=== PATIENT | male | born 1965 | race Two or more races ===

== ENCOUNTER 2017-11-20 18:25 | Emergency (ER) | payer MEDICAID ==
[~2017-11-20] VITALS: Ht 180.3 cm; Wt 92.5 kg
--- NOTE | 2017-11-20 19:10 | Emergency Room Report ---
History of Present Illness General Chief Complaint: Chest Pain Source: Patient, Medical Record Present Illness HPI Patient is a 52-year-old male who present after increased cough and chest discomfort. Patient did have a tightness to the center of his chest. This did not radiate. Patient denied any fever. He had recently started on antibiotics as well as Sudafed. Patient had been noted to have previous EKG which showed ST segment consistent with J-point elevation. Patient denied any radiation of pain. Pain was unchanged with exertion.Patient denied any leg swelling or pain Allergies: Coded Allergies: No Known Allergies (Unverified , 11/20/17) Patient History Reviewed Nursing Documentation: PMH: Agreed, PSxH: Agreed Nursing Documentation-PM Past Medical History: No History, Except For Review of Systems All Other Systems: negative except mentioned in HPI Physical Exam Vital Signs Date Time Temp Pulse Resp B/P (MAP) Pulse Ox O2 Delivery O2 Flow Rate FiO2 11/20/17 18:38 99.7 91 18 143/98 96 Room Air 99.7 Sp02 EP Interpretation: reviewed, normal General Appearance: normal inspection, well appearing, no apparent distress, alert, GCS 15, non-toxic Head: atraumatic ENT: normal ENT inspection, hearing grossly normal, normal voice Neck: normal inspection, full range of motion, supple, no bony tend Respiratory: normal inspection, lungs clear, normal breath sounds, no respiratory distress, no retraction, wheezing Cardiovascular #1: regular rate, rhythm, no edema Gastrointestinal: normal inspection, normal bowel sounds, non tender, soft, no guarding, no hernia Genitourinary: no CVA tenderness Musculoskeletal: normal inspection, back normal, normal range of motion Neurologic: normal inspection, alert, oriented x3, responsive, 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 Differential diagnosis included but was not limited to acute coronary syndrome, pulmonary embolism, pneumonia, aortic dissection, shingles, pneumothorax, aortic dissection, esophageal rupture, pericarditis. Because of complexity of patient's case laboratory testing and imaging studies were ordered. EKG interpreted by me shows sinus tachycardia with rate of [address] or T-wave changes.Laboratory studies are unremarkable. The patient is advised to follow up with primary care doctor in 1-2 days. Patient is advised to return if any worsening condition or if any changes in status that are concerning. This report is dictated with [employer] solo musician software which may occasionally lead to discrepancies related to use of this software. Labs Test 11/20/17 19:31 White Blood Count 5.6 K/UL (4.8-10.8) Red Blood Count 5.79 M/UL (4.70-6.10) Hemoglobin 18.2 G/DL (14.2-18.0) Hematocrit 51.4 % (42.0-52.0) Mean Corpuscular Volume 89 FL (80-99) Mean Corpuscular Hemoglobin 31.4 PG (27.0-31.0) Mean Corpuscular Hemoglobin Concent 35.4 G/DL (32.0-36.0) Red Cell Distribution Width 11.6 % (11.6-14.8) Platelet Count 248 K/UL (150-450) Mean Platelet Volume 6.1 FL (6.5-10.1) Neutrophils (%) (Auto) 61.2 % (45.0-75.0) Lymphocytes (%) (Auto) 28.9 % (20.0-45.0) Monocytes (%) (Auto) 8.3 % (1.0-10.0) Eosinophils (%) (Auto) 0.9 % (0.0-3.0) Basophils (%) (Auto) 0.7 % (0.0-2.0) Prothrombin Time 10.0 SEC (9.30-11.50) Prothromb Time International Ratio 1.0 (0.9-1.1) Activated Partial Thromboplast Time 28 SEC (23-33) Sodium Level 137 MMOL/L (136-145) Potassium Level 3.7 MMOL/L (3.5-5.1) Chloride Level 103 MMOL/L (98-107) Carbon Dioxide Level 27 MMOL/L (21-32) Anion Gap 7 mmol/L (5-15) Blood Urea Nitrogen 15 mg/dL (7-18) Creatinine 1.2 MG/DL (0.55-1.30) Estimat Glomerular Filtration Rate > 60 mL/min (>60) Glucose Level 96 MG/DL (74-106) Calcium Level 9.3 MG/DL (8.5-10.1) Total Bilirubin 0.6 MG/DL (0.2-1.0) Aspartate Amino Transf (AST/SGOT) 28 U/L (15-37) Alanine Aminotransferase (ALT/SGPT) 26 U/L (12-78) Alkaline Phosphatase 77 U/L (46-116) Total Creatine Kinase 160 U/L (26-308) Creatine Kinase MB 1.8 NG/ML (0.0-3.6) Creatine Kinase MB Relative Index 1.1 Troponin I 0.000 ng/mL (0.000-0.056) Pro-B-Type Natriuretic Peptide 81 pg/mL (0-125) Total Protein 8.7 G/DL (6.4-8.2) Albumin 4.3 G/DL (3.4-5.0) Globulin 4.4 g/dL Albumin/Globulin Ratio 1.0 (1.0-2.7) Last Vital Signs Date Time Temp Pulse Resp B/P (MAP) Pulse Ox O2 Delivery O2 Flow Rate FiO2 11/20/17 18:38 99.7 91 18 143/98 96 Room Air 99.7 Status: improved Disposition: HOME, SELF-CARE Condition: Stable Scripts Albuterol Sulfate* (ALBUTEROL SULFATE MDI*) 8.5 Gm Hfa.aer.ad 2 PUFF INH Q6H, #1 INH 0 Refills Prov: Stephen Copeland 11/20/17 Referrals: [facility],REFERR[facility] (PCP) Stephen Copeland Nov 20, 2017 19:10
[2017-11-20] MEDS ORDERED: Albuterol/Ipratropium 3ml neb HHN ONE (19:15)
[2017-11-20 19:17] VITALS: BP 131/92
[2017-11-20 19:44] LABS: BASOPHILS % (AUTO) 0.7 % (0.0-2.0); EOSINOPHILS % (AUTO) 0.9 % (0.0-3.0); HEMATOCRIT 51.4 % (42.0-52.0); LYMPHOCYTES % (AUTO) 28.9 % (20.0-45.0); MEAN CORPUSCULAR VOLUME 89 FL (80-99); MONOCYTES % (AUTO) 8.3 % (1.0-10.0); NEUTROPHILS % (AUTO) 61.2 % (45.0-75.0); PLATELET COUNT 248 K/UL (150-450); RED BLOOD COUNT 5.79 M/UL (4.70-6.10); RED CELL DISTRIBUTION WIDTH 11.6 % (11.6-14.8); WHITE BLOOD COUNT 5.6 K/UL (4.8-10.8)
[2017-11-20 19:48] LABS: HEMOGLOBIN 18.2 G/DL (14.2-18.0)
[2017-11-20 20:17] LABS: ALANINE AMINOTRANSFERASE 26 U/L (12-78); ALBUMIN 4.3 G/DL (3.4-5.0); ALKALINE PHOSPHATASE 77 U/L (46-116); ANION GAP 7 mmol/L (5-15); ASPARTATE AMINO TRANSFERASE 28 U/L (15-37); BILIRUBIN,TOTAL 0.6 MG/DL (0.2-1.0); BLOOD UREA NITROGEN 15 mg/dL (7-18); CALCIUM 9.3 MG/DL (8.5-10.1); CARBON DIOXIDE 27 MMOL/L (21-32); CHLORIDE 103 MMOL/L (98-107); CKMB 1.8 NG/ML (0.0-3.6); CREATINE KINASE 160 U/L (26-308); CREATININE 1.2 MG/DL (0.55-1.30); POTASSIUM 3.7 MMOL/L (3.5-5.1); SODIUM 137 MMOL/L (136-145)
[2017-11-20] MEDS ORDERED: ALBUTEROL SULF8.5 GM INH (20:23)
[2017-11-20 20:37] VITALS: BP 151/93
[2017-11-20 20:43] VITALS: BP 151/93
--- NOTE | 2017-11-21 09:46 | Diagnostic Imaging Report ---
Indication: Shortness of breath Technique: XRAY Chest 1v Comparison: None Findings: The cardiomediastinal silhouette is within normal limits. There is no focal consolidation, pneumothorax or pleural effusion. Osseous structures demonstrate no acute abnormality. Impression: No acute cardiopulmonary disease.
--- NOTE | 2017-11-22 16:30 | Cardiology Report ---
APPROVED REPORT EKG Measurement Heart [id number] CO [id number] [id number] Sinus tachycardia Otherwise normal ECG
== END 2017-11-20 20:43 | disposition home or self-care (01) ==
LOC: EMR 18:54
DX: R07.89 Other chest pain (principal); J40 Bronchitis, not specified as acute or chronic
CPT/HCPCS: 36415; 71045; 80053; 82550; 82553; 83880; 84484; 85025; 85610; 85730; 93005; 94640; 94664; 99282; J7620